=== PATIENT | female | born 1950 | race Caucasian/White ===

== ENCOUNTER 2019-09-02 12:47 | Inpatient (IN) | payer MEDICARE, BC ==
[~2019-09-02] VITALS: Ht 154.9 cm; Wt 50.3 kg
[~2019-09-02 12:47] MED LIST: EPINEPHRINE SYRINGE 0.1 MG/ML, 10ML ONE; ETOMIDATE 20 MG/10 ML ONE; MIDAZOLAM 1 MG/ML, 5ML ONE; PROPOFOL 10 MG/ML, 100ML IV ONE; PROPOFOL 10 MG/ML, 20ML ONE; ROCURONIUM 10MG/ML,5ML ONE; SODIUM BICARB 8.4%, 50ML SYRINGE ONE
[2019-09-02] MEDS ORDERED: DEXTROSE 50%, 50ML SYRINGE ONE ×2 (12:54→14:46)
[2019-09-02] MEDS ORDERED: PLEASE ENTER ALLERGIES MC SCH (13:00)
[2019-09-02] MEDS ORDERED: DEXTROSE 50%, 50ML SYRINGE IVPush ONE ×2 (13:00→15:00)
[2019-09-02] MEDS ORDERED: PLEASE ENTER HEIGHT AND WEIGHT MC SCH (13:00)
[2019-09-02] MEDS ORDERED: SODIUM CHLORIDE FLUSH 10ML SYR IVF ONE (13:00)
[2019-09-02] MEDS ORDERED: SODIUM CHLORIDE 0.9% 1,000ML IVBOLUS ONE ×3 (13:00→16:30)
--- NOTE | 2019-09-02 13:00 | NUR ---
DESPITE NOT BEING REGISTERED. FINGERSTICK BLOOD SUGAR OBTINED PATIENT ALTERED. (UTILIZED ) FOUND TO BE 32. D50 GIVEN IMMEDIATELY
--- NOTE | 2019-09-02 13:16 | NUR ---
POST D50 FSBS:119 (PATIENT NOW REGISTERED). IMPROVED MENTATION (MAKING SOUNDS) RECTAL TEMP FOUND TO BE 95.3-BARE HUGGER/WARM BLAKETS APPLIED
[2019-09-02 13:32] LABS: ALBUMIN 1.4 g/dL (3.4-5.0); ANION GAP 10 mmol/L (5-15); CALCIUM 6.7 mg/dL (8.5-10.1); CHLORIDE 106 mmol/L (98-107); CREATININE 3.44 mg/dL (0.55-1.02)
[2019-09-02 13:37] LABS: ALANINE AMINOTRANSFERASE 74 U/L (12-78); ALKALINE PHOSPHATASE 151 U/L (45-117); BILIRUBIN,TOTAL 0.9 mg/dL (0.2-1.0); TOTAL PROTEIN 3.7 g/dL (6.4-8.2)
[2019-09-02 13:42] LABS: SALICYLATE LEVEL < 1.7 mg/dL (2.8-20.0)
--- NOTE | 2019-09-02 13:45 | NUR ---
PT REMAINS HYPOTENSIVE 80/37, NOT RESPOSIVE TO 1000ML NS BOLUS. SR ON MONITOR, HR 81. DISCUSSED MEDICATIONS LIST WITH ERP AND PT STATUS, TO ADMIN NARCAN PER
[2019-09-02] MEDS ORDERED: NALOXONE 0.4 MG/ML, 1ML ONE (13:47)
[2019-09-02] MEDS ORDERED: POTASSIUM CL ER PO (13:49)
[2019-09-02] MEDS ORDERED: FURO20TA3 PO (13:49)
[2019-09-02] MEDS ORDERED: DIPH25CA61 PO (13:49)
[2019-09-02] MEDS ORDERED: NAPR-685 PO (13:49)
[2019-09-02] MEDS ORDERED: CETI10TA32 PO (13:49)
[2019-09-02] MEDS ORDERED: OXYC10TA6 PO (13:49)
[2019-09-02] MEDS ORDERED: ACYC-57 PO (13:49)
[2019-09-02] MEDS ORDERED: IBUP-1902 PO (13:49)
[2019-09-02] MEDS ORDERED: [UNRECOGNIZED DRUG - OTHER] PO (13:51)
[2019-09-02 13:53] LABS: MEAN CORPUSCULAR HEMOGLOBIN 32.2 pg (27.0-34.8); MEAN CORPUSCULAR VOLUME 97.8 fL (80-100); MEAN PLATELET VOLUME 11.1 fL (7.4-10.4); PLATELET COUNT 193 x10^3/uL (130-400); RED BLOOD COUNT 3.74 x10^6/uL (3.82-5.3)
[2019-09-02] MEDS ORDERED: [UNRECOGNIZED DRUG - REMARK] PO (13:53)
--- NOTE | 2019-09-02 13:54 | NUR ---
PT RESPONDED TO NARCAN, AROUSED QUICKLY, HR INCREASED TO 100'S, ST ON ON MONITOR. RR 22. BP IMPROVING TO 97/72. PT TRYING TO PULL AND REMOVE ALL HER MONITORS, SPOUSE AT BEDSIDE TO ASSIST IN RE-ORIENTATION. PT ABLE TO GIVE HER FULL NAME. REPETATIVE JAW MOVEMENTS AND UPPER AND LOWER EXTREMITY TWICTCHING NOTED, PER SPOUSE "SHE ALWAYS TWITCHES." PT SCREAMING, "IT HURTS, IT HURTS."
--- NOTE | 2019-09-02 13:57 | NUR ---
DR. RAUSCH AT BEDSIDE FOR RE-EVAL S/P NARCAN, DISCUSSING TEST RESULTS AND POC WITH SPOUSE
[2019-09-02] MEDS ORDERED: LORazepam 2 MG/ML, 1ML ONE ×2 (13:58→14:45)
[2019-09-02 14:00] LABS: MD YES
[2019-09-02] MEDS ORDERED: LORazepam 2 MG/ML, 1ML IVPush ONE ×2 (14:00→15:00)
[2019-09-02] MEDS ORDERED: NALOXONE 0.4 MG/ML, 1ML IVPush ONE (14:00)
--- NOTE | 2019-09-02 14:02 | NUR ---
PT MEDICATED PER DR. RAUSCH AT BEDSIDE WITH 1MG ATIVAN IV. PT TO CT AT THIS TIME
[2019-09-02 14:14] LABS: BANDS%(MANUAL) 10 % (0-7); BASOS#(MANUAL) 0.08 x10^3/uL (0-0.1); BASOS% (MANUAL) 1 % (0-1); LYMPH#(MANUAL) 0.48 x10^3/uL (1-3.4); LYMPHS% (MANUAL) 6 % (22-44); MONOS#(MANUAL) 0.24 x10^3/uL (0.3-2.7); MONOS% (MANUAL) 3 % (2-9); SEGS% (MANUAL) 80 % (42-75)
[2019-09-02 14:16] LABS: <RBC MORPHOLOGY> NORMAL; PMNS WITH VACUOLES 2+
[2019-09-02 14:17] LABS: <PLATELET ESTIMATE> ADEQUATE; LARGE PLATELETS 1+
--- NOTE | 2019-09-02 14:18 | NUR ---
PT BACK FROM CT. PT MORE AWAKE, RESPONDING TO ATIVAN. VSS. ST ON MONITOR
--- NOTE | 2019-09-02 14:32 | NUR ---
ASSISTED PRIMARY RN MARIO WITH STRAIGHT CATH, PT TOLERATED WELL. UA COLLECTED AND SENT TO LAB. RECTAL TEMP RECHECKED, 93.7. BEAR PAW BLANKET WARMER REMAINS IN PLACE WITH ADDITIONAL WARM BLANKETS. DISCUSSED TEMP WITH DR. RAUSCH, AWARE, TO CONTINUE WARMING PT.
--- NOTE | 2019-09-02 14:37 | NUR ---
LATE ENTRY 1310: IVF INFUSING ON FLUID WARMER PER DR. RAUSCH DUE TO RECTAL TEMP
[2019-09-02 14:50] LABS: MICROSCOPIC AUTO
--- NOTE | 2019-09-02 14:50 | NUR ---
REPEAT FSBS:57. ADDITIONAL AMP OF D50 ORDERED WELL D10 GTT AGITATED, PULLING AT THINGS (NARCAN)-ADDITIONAL 0.5MG OF ATIVAN ADMINISTERED SECOND LITER OF NS INFUSING AT BOLUS RATE WITH FLUID WARMER WELL GLADYS HUGGER TEMP REMAIN 94 RECTALLY
[2019-09-02] MEDS ORDERED: CEFTRIAXONE PMX 1GM/50ML 50 ML ONE (14:57)
[2019-09-02] MEDS ORDERED: CALCIUM GLUCONATE IV ONE (15:00)
[2019-09-02] MEDS ORDERED: CALCIUM GLUCONATE 0.46MEQ/1ML IVPush ONE (15:00)
[2019-09-02] MEDS ORDERED: POTASSIUM CHLORIDE 10 MEQ in DEXTROSE 10% 1,000 ML IV ONE (15:00)
[2019-09-02] MEDS ORDERED: DEXTROSE 5% IV ONE (15:00)
--- NOTE | 2019-09-02 15:02 | NUR ---
ABX ADMINISTERED PER EMAR (BLOOD CUKTURES ALREADY DRAWN), CALCIUM AND D10 WITH KCL ADMINISTERED PER EMAR
--- NOTE | 2019-09-02 15:04 | NUR ---
PROVIDER ASKED FOR ALBUMIN ORER AND MADE AWARE OF BRIGHT RED RECTAL BLEEDING
[2019-09-02 15:06] LABS: AMPHETAMINE SCREEN, URINE Negative (Negative); BARBITURATE SCREEN, URINE Negative (Negative); BENZODIAZEPINE SCREEN, URINE Negative (Negative); CANNABINOID SCREEN, URINE Negative (Negative); COCAINE SCREEN, URINE Negative (Negative); METHADONE SCREEN, URINE Negative (Negative); OPIATE SCREEN, URINE Positive (Negative)
--- NOTE | 2019-09-02 15:30 | NUR ---
DR. VALENZUELA AT BEDSIDE. D/T ALTERED STATE REQUIRING MORE SEDATION IN THE SETTING OF LOW B/P SHE WOULD LIKE ER MD TO INTUBATE PROVIDER TO BEDSIDE TO EXPLAI NECCESITY TO
--- NOTE | 2019-09-02 15:40 | NUR ---
PATIENT SUCCESSFULLY RSI'S VIA PROPOFOL IVP/ROCURONIUM (DRUGS CHOSEN D/T ASSUMED ADRENAL CRISIS) ETT 7.5 -21 AT THE TEETH SET AT VC+ 16/400/100%/PEEP 5 OG/FORD PLACED OG WITH MARINO BLOOD RETURNED PULMONARY TO BEDSIDE HE WOULD LIKE THE BLEEDING CLOSELY WATCHED/ACCURATE I/OS AND WOULD LIKE UNASYN ADMINISTERED LIZ DESPITE RECENT ROCEPHIN ADMIN
[2019-09-02 15:44] LABS: INTERNATIONAL NORMALIZED RATIO 1.61 (0.93-1.1); PROTHROMBIN TIME 17.2 Seconds (9.6-11.5)
[2019-09-02 15:49] LABS: FREE T4 (FREE THYROXINE) 0.83 ng/dL (0.76-1.46)
[2019-09-02] MEDS ORDERED: ONDANSETRON 2MG/ML, 2ML IVPush PRN (16:00)
[2019-09-02] MEDS ORDERED: DEXTROSE 50%, 50ML SYRINGE IVPush PRN ×2 (16:00→16:30)
[2019-09-02] MEDS ORDERED: PANTOPRAZOLE 80 MG in SODIUM CHLORIDE 0.9% 50 ML IV ONE (16:00)
[2019-09-02] MEDS ORDERED: ROCURONIUM 10 MG/ML,10ML IVPush ONE (16:00)
[2019-09-02] MEDS ORDERED: DEXTROSE 4 GM TAB.CHEW PO PRN ×2 (16:00→16:30)
[2019-09-02] MEDS ORDERED: GLUCAGON 1 MG IM PRN ×2 (16:00→16:30)
[2019-09-02] MEDS ORDERED: PROPOFOL 10 MG/ML, 20ML IVPush ONE (16:00)
[2019-09-02] MEDS ORDERED: DEXTROSE 10%, 1,000ML IV SCH ×2 (16:00→17:30)
[2019-09-02] MEDS ORDERED: VANCOMYCIN PER PHARMACY MC PRN (16:00)
[2019-09-02] MEDS ORDERED: PANTOPRAZOLE 80 MG in SODIUM CHLORIDE 0.9% 100 ML IV SCH (16:00)
[2019-09-02] MEDS ORDERED: PANTOPRAZOLE 40 MG IV IVPush SCH (16:00)
[2019-09-02] MEDS ORDERED: ACETAMINOPHEN 325 MG TABLET PO PRN (16:00)
[2019-09-02] MEDS ORDERED: CEFTRIAXONE PMX 1GM/50ML 50 ML IV ONE (16:00)
[2019-09-02] MEDS ORDERED: NOREPINEPHRINE 8 MG in SODIUM CHLORIDE 0.9% 242 ML IV PRN (16:15)
[2019-09-02] MEDS ORDERED: PROPOFOL 100 ML IV PRN (16:15)
--- NOTE | 2019-09-02 16:22 | NUR ---
cxr at bedside for central line/ett placement check med requested: fent gtt.unasyn/vit k/protonix gtt Rythm change noted (wider rhythm)-ecg obtained. Provider unconcern. remains with lbb
[2019-09-02 16:25] LABS: TROPONIN I 0.103 ng/mL (0.000-0.045)
[2019-09-02 16:26] LABS: CREATININE,URINE RANDOM 83.8 mg/dL
[2019-09-02] MEDS ORDERED: SENNA/DOCUSATE TABLET NG PRN (16:30)
[2019-09-02] MEDS ORDERED: BISACODYL 10 MG SUPP PR PRN (16:30)
[2019-09-02] MEDS ORDERED: MIDAZOLAM 1 MG/ML, 2ML IVPush PRN (16:30)
[2019-09-02] MEDS ORDERED: FENTANYL PF 1,000 MCG in SODIUM CHLORIDE 0.9% 80 ML IV PRN (16:30)
[2019-09-02] MEDS ORDERED: LACTULOSE 20 GM/30 ML UDC NG PRN (16:30)
[2019-09-02] MEDS ORDERED: LIDOCAINE-MPF 1%, 2ML ENDO PRN (16:30)
[2019-09-02] MEDS ORDERED: PHARMACY MAY ADJ FOR RENAL FX MC SCH (16:30)
--- NOTE | 2019-09-02 16:36 | NUR ---
PT. GETTING ULTRA SOUND AT BED SIDE.
--- NOTE | 2019-09-02 16:37 | NUR ---
PT. TEMP REMAINS AT 95. MEDS BEING DELIVERED FROM PHARMACY. FLUIDS WARMED.
[2019-09-02] MEDS ORDERED: PHYTONADIONE 5 MG in SODIUM CHLORIDE 0.9% 50 ML IV ONE (17:00)
[2019-09-02] MEDS: NOREPINEPHRINE 8 MG in SODIUM CHLORIDE 0.9% 242 ML IV PRN ×2 (17:02→23:33)
--- NOTE | 2019-09-02 17:03 | NUR ---
OJ ADVANCED 10CM PER MD RT AT BEDSIDE-FI02 CHANGED TO 40% 2ND LITER OF NS INFUSING TO MEET SEPSIS CRITERIA LEVOPHED, FENTANYL, PROTONIX DRIPS STARTED VITAMIN K INFUSION STARTED WELL
[2019-09-02] MEDS: AMPICILLIN/SULBACTAM 1,500 MG in SODIUM CHLORIDE 0.9% 50 ML IV SCH (17:13)
[2019-09-02] MEDS: LACTULOSE 10 GM/15 ML UDC PO SCH ×2 (17:36→21:54)
--- NOTE | 2019-09-02 17:40 | NUR ---
ALL BELONGINGS GIVEN TO (INCLUDING MULTIPLE PIECES OF JEWELRY). HE CONFIRMED ALL PIECES ACCOUNTED FOR
[2019-09-02] MEDS ORDERED: DEXTROSE 10%, 1,000ML IV STA (17:59)
[2019-09-02] MEDS: SODIUM CHLORIDE 0.9% 1,000 ML IV SCH ×2 (18:00→18:52)
[2019-09-02 18:58] VITALS: BP 107/53
[2019-09-02] MEDS ORDERED: DEXTROSE 10% 1,000 ML IV SCH (19:00)
[2019-09-02] MEDS ORDERED: VANCOMYCIN 1,300 MG in SODIUM CHLORIDE 0.9% 250 ML IV ONE (20:00)
[2019-09-02] MEDS ORDERED: PHARMACOKINETIC CONSULTATION MC ONE (20:00)
[2019-09-02] MEDS ORDERED: PHARMACOKINETIC MONITORING MC PRN (20:00)
[2019-09-02] MEDS ORDERED: SENNA 176 MG/5 ML ORAL SOL NG PRN (21:00)
[2019-09-02] MEDS ORDERED: SODIUM CHLORIDE FLUSH 10ML SYR IVF SCH ×2 (21:00)
[2019-09-02 23:04] LABS: TROPONIN I 0.206 ng/mL (0.000-0.045)
[2019-09-03] MEDS: AMPICILLIN/SULBACTAM 1,500 MG in SODIUM CHLORIDE 0.9% 50 ML IV SCH (00:06)
[2019-09-03] MEDS ORDERED: VASOPRESSIN 20 UNIT in SODIUM CHLORIDE 0.9% 99 ML IV PRN (01:00)
[2019-09-03] MEDS ORDERED: EPINEPHRINE SYRINGE 0.1 MG/ML, 10ML ONE (01:49)
[2019-09-03] MEDS ORDERED: CODE BLUE RESPONSE XX ONE (01:49)
[2019-09-03] MEDS ORDERED: SODIUM BICARB 8.4%, 50ML SYRINGE ONE (01:49)
[2019-09-03] MEDS ORDERED: ACYCLOVIR 400 MG TABLET PO SCH (09:00)
== END 2019-09-03 05:15 | disposition expired | DRG 871 ==
LOC: ED 16:00 → EDIP 16:27 → CCU 19:36
PROVIDERS: ADMIT Hospitalist; ATTEND Hospitalist
PROC: 0T9B70Z Drainage of Bladder with Drainage Device, Via Natural or Artificial Opening (ICD-10-PCS; principal; 2019-09-02)
PROC: 0BH17EZ Insertion of Endotracheal Airway into Trachea, Via Natural or Artificial Opening (ICD-10-PCS; 2019-09-02)
PROC: 5A1935Z Respiratory Ventilation, Less than 24 Consecutive Hours (ICD-10-PCS; 2019-09-02)
PROC: 02H633Z Insertion of Infusion Device into Right Atrium, Percutaneous Approach (ICD-10-PCS; 2019-09-02)
DX: A41.59 Other Gram-negative sepsis (principal); E43 Unspecified severe protein-calorie malnutrition; G93.41 Metabolic encephalopathy; J96.01 Acute respiratory failure with hypoxia; R65.21 Severe sepsis with septic shock; J15.6 Pneumonia due to other Gram-negative bacteria; C85.90 Non-Hodgkin lymphoma, unspecified, unspecified site; E72.20 Disorder of urea cycle metabolism, unspecified; E85.9 Amyloidosis, unspecified; E87.2 Acidosis; N17.9 Acute kidney failure, unspecified; K92.2 Gastrointestinal hemorrhage, unspecified; E03.9 Hypothyroidism, unspecified; E16.2 Hypoglycemia, unspecified; E66.9 Obesity, unspecified; E83.51 Hypocalcemia; E86.1 Hypovolemia; G89.4 Chronic pain syndrome; I12.9 Hypertensive chronic kidney disease with stage 1 through stage 4 chronic kidney disease, or unspecified chronic kidney disease; I95.89 Other hypotension; I35.0 Nonrheumatic aortic (valve) stenosis; N18.9 Chronic kidney disease, unspecified; I46.9 Cardiac arrest, cause unspecified; Z82.49 Family history of ischemic heart disease and other diseases of the circulatory system; Z95.2 Presence of prosthetic heart valve; Z98.84 Bariatric surgery status; Z68.21 Body mass index [BMI] 21.0-21.9, adult; Z98.891 History of uterine scar from previous surgery; Z95.4 Presence of other heart-valve replacement
CPT/HCPCS: 31500; 36415; 36556; 36600; 70450; 71045; 76700; 80053; 80307; 81001; 82140; 82330; 82533; 82570; 82803; 82962; 83036; 83605; 83615; 83690; 83735; 84100; 84145; 84156; 84300; 84439; 84443; 84478; 84481; 84484; 85014; 85018; 85025; 85610; 85651; 86850; 86900; 87040; 87070; 87077; 87081; 87147; 87186; 87205; 92950; 93005; 94002; 96361; 96365; 96375; G0378; J0696; J2250; J2310; J2704; J3010; J3370; J3430; J3480; C9113; J0295; J0610; J2060; J7030; J7050